=== PATIENT | female | born 1990 | race American Indian/Alaskan Native ===

== ENCOUNTER 2018-09-02 13:22 | Outpatient (CLI) | payer BC ==
--- NOTE | 2018-09-02 19:44 | Ultrasound Report ---
FINAL REPORT EXAM: US TRANSVAGINAL HISTORY: PELVIC PAIN TECHNIQUE: Transvaginal grayscale and color-flow imaging of the pelvis was performed. Comparison: Transabdominal study also performed today FINDINGS: The uterus measures 6.8 centimeters x 3.6 centimeters x 4.8 centimeters and is unremarkable in appearance.. Endometrial thickness measures 3.2 millimeters. The right ovary measures 3.3 centimeters x 1.1 centimeters x 2.2 centimeters, is normal in appearance and contains follicles. Flow is demonstrated in the right ovary utilizing color flow imaging. The left ovary measures 2 centimeters x 1.5 centimeters x 1.7 centimeters, is normal in appearance and contains follicles. Flow is demonstrated in the left ovary utilizing color flow imaging. No free fluid is demonstrated within the pelvis. IMPRESSION: 1. Ultrasound pelvis within normal limits.
--- NOTE | 2018-09-02 21:18 | Ultrasound Report ---
FINAL REPORT EXAM: US PELVIC COMPLETE HISTORY: PELVIC PAIN TECHNIQUE: Transabdominal grayscale and color-flow imaging of the pelvis was performed. Comparison: Transvaginal ultrasound also performed today FINDINGS: The urinary bladder is moderately distended and unremarkable in appearance. The uterus measures 6.8 centimeters x 3.6 centimeters by 4.8 centimeters and is unremarkable in appearance. Endometrial thickness measures 3 millimeters. The ovaries are not well visualized on the transabdominal study. No free fluid is demonstrated in the pelvis. IMPRESSION: 1. Unremarkable appearance of the uterus. 2. The ovaries are not well visualized on the transabdominal study. Please see report of transvaginal study also performed today.
== END 2018-09-02 13:23 | disposition home or self-care (01) ==
LOC: US 13:22
PROVIDERS: ATTEND Obstetrics & Gynecology
DX: R10.2 Pelvic and perineal pain (principal)
CPT/HCPCS: 76830; 76856